=== PATIENT | male | born 1985 | race Caucasian/White ===

== ENCOUNTER → 2024-05-04 | Outpatient (CLI) | payer OTHER ==
[~2024-05-04] MED LIST: PROHANCE 279.3MG/ML 15ML VIAL ONE; PROHANCE 279.3MG/ML 5ML VIAL ONE
== END ==
LOC: M PLAIMG 07:09
PROVIDERS: ATTEND Internal Medicine
DX: H46.9 Unspecified optic neuritis (principal)
CPT/HCPCS: 70543; 70553; A9576

== ENCOUNTER 2025-07-05 11:19 | Emergency (ER) | payer OTHER ==
[~2025-07-05] VITALS: Ht 175.3 cm; Wt 133.5 kg
[2025-07-05 13:04] VITALS: BP 152/79; TEMP 96.9; O2SAT 98
[2025-07-05] MEDS ORDERED: ONDA-282 PO (13:04)
== END 2025-07-05 13:09 | disposition home or self-care (01) ==
LOC: M ED 11:19
DX: S06.0X0A Concussion without loss of consciousness, initial encounter (principal); V49.40XA Driver injured in collision with unspecified motor vehicles in traffic accident, initial encounter; Y92.9 Unspecified place or not applicable; Y93.9 Activity, unspecified; Y99.9 Unspecified external cause status